=== PATIENT | female | born 1965 | race Caucasian/White ===

== ENCOUNTER 2018-04-08 14:51 | Emergency (ER) | payer MEDICAID ==
[~2018-04-08] VITALS: Ht 167.6 cm; Wt 88.9 kg
[2018-04-08 15:01] VITALS: BP_SYST 142
[2018-04-08 16:22] LABS: BASOPHILS # (AUTO) 0.1 K/uL (0.0-0.2); BASOPHILS % (AUTO) 0.7 % (0.0-2.0); EOSINOPHILS # (AUTO) 0.2 K/uL (0.0-0.4); EOSINOPHILS % (AUTO) 2.6 % (0.0-4.0); HEMATOCRIT 34.1 % (36-48); HEMOGLOBIN 11.6 g/dL (12.0-16.0); LYMPHOCYTES # (AUTO) 2.9 K/uL (1.0-5.5); MEAN CORPUSCULAR HEMOGLOBIN 30 pg (27-31); MEAN CORPUSCULAR HGB CONC 34 % (32-36); MEAN CORPUSCULAR VOLUME 87 fL (79.0-98.0); MONOCYTES # (AUTO) 0.4 K/uL (0.0-1.0); NEUTROPHILS # (AUTO) 5.1 K/uL (1.8-7.7); NEUTROPHILS % (AUTO) 58.7 % (40.0-70.0); PLATELET COUNT (AUTO) 372 K/uL (130-430); RED BLOOD CELL COUNT(AUTO) 3.91 MIL/uL (4.2-6.2); WHITE BLOOD COUNT (AUTO) 8.8 K/uL (4.8-10.8)
[2018-04-08 16:33] LABS: CALCIUM 9.1 mg/dL (8.4-11.0); CREATININE 1.2 mg/dL (0.55-1.30); POTASSIUM 4.2 mmol/L (3.5-5.1)
[2018-04-08 16:48] LABS: ALBUMIN 3.2 g/dL (3.4-4.8); TOTAL BILIRUBIN 0.3 mg/dL (0.0-1.0)
[2018-04-08 17:03] LABS: BILIRUBIN,URINE NEGATIVE (NEGATIVE); BLOOD, URINE NEGATIVE (NEGATIVE); CLARITY/URINE CLEAR (CLEAR); COLOR,URINE YELLOW (YELLOW); GLUCOSE,URINE 3+ (NEGATIVE); KETONES,URINE NEGATIVE (NEGATIVE); LEUKOCYTE ESTERASE ,URINE NEGATIVE (NEGATIVE); NITRITE, URINE NEGATIVE (NEGATIVE); PROTEIN URINE NEGATIVE (NEGATIVE)
[2018-04-08] MEDS ORDERED: INSULIN REGULAR, HUMAN 10 UNITS/0.1 ML INJ IVP ONE (17:15)
[2018-04-08] MEDS ORDERED: NACL 0.9% 1,000 ML IV ONE (17:15)
[2018-04-08] MEDS ORDERED: ONDANSETRON HCL 4 MG/2 ML VIAL IVP ONE (18:30)
[2018-04-08 19:02] VITALS: BP_SYST 139
== END 2018-04-08 18:59 | disposition home or self-care (01) ==
LOC: SED 14:51
DX: E11.621 Type 2 diabetes mellitus with foot ulcer (principal); E11.65 Type 2 diabetes mellitus with hyperglycemia; I10 Essential (primary) hypertension; I48.91 Unspecified atrial fibrillation; Z88.8 Allergy status to other drugs, medicaments and biological substances
CPT/HCPCS: 36415; 73630; 80053; 81003; 81025; 83605; 85025; 87040; 96365; 96366; 96375; 99285; J1956; J2405; J7030; J1815

== ENCOUNTER 2019-11-06 10:23 | Inpatient (IN) | payer MEDICAID ==
[~2019-11-06] VITALS: Ht 167.6 cm; Wt 88.9 kg
[2019-11-06 10:32] VITALS: BP_SYST 161
[2019-11-06] MEDS ORDERED: PIPERACILLIN/TAZO 3.375 GM in NS 50 ML IV ONE (12:30)
[2019-11-06] MEDS ORDERED: PIPERACILLIN/TAZOBACTAM 3.375 GM/VIAL (ZOSYN) IV ONE ×2 (13:35→21:50)
[2019-11-06 13:41] LABS: BASOPHILS # (AUTO) 0.1 K/uL (0.0-0.2); BASOPHILS % (AUTO) 0.6 % (0.0-2.0); EOSINOPHILS # (AUTO) 0.3 K/uL (0.0-0.4); EOSINOPHILS % (AUTO) 3.2 % (0.0-4.0); LYMPHOCYTES # (AUTO) 2.6 K/uL (1.0-5.5); LYMPHOCYTES % (AUTO) 27.3 % (20.5-51.5); MEAN CORPUSCULAR HEMOGLOBIN 29 pg (27-31); MEAN CORPUSCULAR HGB CONC 33 % (32-36); MEAN CORPUSCULAR VOLUME 88 fL (79.0-98.0); MONOCYTES # (AUTO) 0.5 K/uL (0.0-1.0); MONOCYTES % (AUTO) 5.7 % (1.7-9.3); NEUTROPHILS % (AUTO) 63.2 % (40.0-70.0); PLATELET COUNT (AUTO) 508 K/uL (130-430); RED BLOOD CELL COUNT(AUTO) 3.41 MIL/uL (4.2-6.2); RED CELL DISTRIBUTION WIDTH 12.4 % (9.0-15.0); WHITE BLOOD COUNT (AUTO) 9.4 K/uL (4.8-10.8)
[2019-11-06 13:52] LABS: CALCIUM 9.3 mg/dL (8.4-11.0); CREATININE 0.74 mg/dL (0.55-1.30); POTASSIUM 4.1 mmol/L (3.5-5.1)
[2019-11-06 14:08] LABS: ALBUMIN 2.6 g/dL (3.4-4.8); TOTAL BILIRUBIN 0.5 mg/dL (0.0-1.0)
[2019-11-06] MEDS ORDERED: LIP40 PO (15:38)
[2019-11-06] MEDS ORDERED: ASPI-1457 PO (15:38)
[2019-11-06] MEDS ORDERED: LOSA25TA3 PO (15:38)
[2019-11-06] MEDS ORDERED: GLU500 PO (15:38)
[2019-11-06] MEDS ORDERED: PIPERACILLIN/TAZO 3.375/DEX-IS 50 ML IV ONE (18:45)
[2019-11-06] MEDS ORDERED: DEXTROSE 50% JECT 50 ML DISP.SYRIN IVP PRN (18:45)
[2019-11-06] MEDS: VANCOMYCIN HCL 1.25 GM/NS 250 ML IV SCH (20:00)
[2019-11-06 21:00] VITALS: BP_SYST 143
[2019-11-06] MEDS: INSULIN REGULAR, HUMAN 100 UNITS/ML, 10 ML VIAL (humuLIN R) SUBCUT PRN (22:42)
[2019-11-07] VITALS: BP_SYST 145
[2019-11-07] MEDS: PIPERACILLIN/TAZO 3.375/DEX-IS 50 ML IV SCH ×5 (00:38→23:49)
[2019-11-07 08:00] VITALS: BP_SYST 155
[2019-11-07] MEDS: VANCOMYCIN HCL 1.25 GM/NS 250 ML IV SCH ×2 (08:54→20:00)
[2019-11-07] MEDS: ASPIRIN 81 MG TABLET(ECOTRIN) PO SCH (08:55)
[2019-11-07] MEDS: ATORVASTATIN 20 MG TABLET PO SCH (08:55)
[2019-11-07] MEDS: metFORMIN HCL 500 MG TABLET PO SCH ×2 (08:55→17:33)
[2019-11-07] MEDS: LOSARTAN POTASSIUM 25 MG TABLET PO SCH (08:56)
[2019-11-07 12:00] VITALS: BP_SYST 148
[2019-11-07 16:00] VITALS: BP_SYST 145
[2019-11-07] MEDS: INSULIN REGULAR, HUMAN 100 UNITS/ML, 10 ML VIAL (humuLIN R) SUBCUT PRN ×2 (17:46→23:52)
[2019-11-07 19:30] VITALS: BP_SYST 150
[2019-11-08] VITALS: BP_SYST 135
[2019-11-08] MEDS: PIPERACILLIN/TAZO 3.375/DEX-IS 50 ML IV SCH ×3 (05:17→18:44)
[2019-11-08] MEDS: INSULIN REGULAR, HUMAN 100 UNITS/ML, 10 ML VIAL (humuLIN R) SUBCUT PRN ×2 (05:24→12:19)
[2019-11-08 08:00] VITALS: BP_SYST 158
[2019-11-08] MEDS: ATORVASTATIN 20 MG TABLET PO SCH (08:43)
[2019-11-08] MEDS: LOSARTAN POTASSIUM 25 MG TABLET PO SCH (08:44)
[2019-11-08] MEDS: ASPIRIN 81 MG TABLET(ECOTRIN) PO SCH (08:44)
[2019-11-08] MEDS: metFORMIN HCL 500 MG TABLET PO SCH ×2 (08:45→18:44)
[2019-11-08] MEDS: VANCOMYCIN HCL 1.25 GM/NS 250 ML IV SCH ×2 (08:45→20:00)
[2019-11-08 12:00] VITALS: BP_SYST 147
[2019-11-08 17:00] VITALS: BP_SYST 163
[2019-11-08] MEDS: BALSAM PERU/CASTOR OIL 60 GM OINT...G. TP SCH (18:44)
[2019-11-08 19:30] VITALS: BP_SYST 144
[2019-11-08 23:52] VITALS: BP_SYST 136
[2019-11-09] MEDS: PIPERACILLIN/TAZO 3.375/DEX-IS 50 ML IV SCH ×5 (01:04→21:31)
[2019-11-09] MEDS ORDERED: KETOROLAC TROMETHAMINE 15 MG VIAL IM ONE (01:45)
[2019-11-09] MEDS ORDERED: KETOROLAC TROMETHAMINE 15 MG VIAL IVP ONE (02:00)
[2019-11-09] MEDS ORDERED: IBUPROFEN 600 MG TABLET PO ONE (06:00)
[2019-11-09 06:36] LABS: ALBUMIN 2.4 g/dL (3.4-4.8); CALCIUM 8.8 mg/dL (8.4-11.0); CREATININE 0.96 mg/dL (0.55-1.30); POTASSIUM 4.3 mmol/L (3.5-5.1); TOTAL BILIRUBIN 0.3 mg/dL (0.0-1.0)
[2019-11-09 08:00] VITALS: BP_SYST 160
[2019-11-09] MEDS: ASPIRIN 81 MG TABLET(ECOTRIN) PO SCH (08:11)
[2019-11-09] MEDS: VANCOMYCIN HCL 1.25 GM/NS 250 ML IV SCH ×2 (08:11→21:31)
[2019-11-09] MEDS: BALSAM PERU/CASTOR OIL 60 GM OINT...G. TP SCH (08:11)
[2019-11-09] MEDS: metFORMIN HCL 500 MG TABLET PO SCH ×2 (08:11→17:12)
[2019-11-09] MEDS: ATORVASTATIN 20 MG TABLET PO SCH (08:12)
[2019-11-09] MEDS: LOSARTAN POTASSIUM 25 MG TABLET PO SCH (08:12)
[2019-11-09 12:22] VITALS: BP_SYST 129
[2019-11-09] MEDS: INSULIN REGULAR, HUMAN 100 UNITS/ML, 10 ML VIAL (humuLIN R) SUBCUT PRN (12:45)
[2019-11-09 13:36] LABS: CHOLESTEROL 113 mg/dL (<200); HDL CHOLESTEROL 28 mg/dL (>55); LDL CHOLESTEROL 65 mg/dL (<100); TRIGLYCERIDES 89 mg/dL (30-150)
[2019-11-09 13:47] LABS: BASOPHILS # (AUTO) 0.1 K/uL (0.0-0.2); EOSINOPHILS # (AUTO) 0.3 K/uL (0.0-0.4); EOSINOPHILS % (AUTO) 3.2 % (0.0-4.0); HEMATOCRIT 29.5 % (36-48); HEMOGLOBIN 9.8 g/dL (12.0-16.0); LYMPHOCYTES # (AUTO) 2.8 K/uL (1.0-5.5); LYMPHOCYTES % (AUTO) 32.2 % (20.5-51.5); MEAN CORPUSCULAR HEMOGLOBIN 29 pg (27-31); MEAN CORPUSCULAR HGB CONC 33 % (32-36); MEAN CORPUSCULAR VOLUME 88 fL (79.0-98.0); MONOCYTES # (AUTO) 0.5 K/uL (0.0-1.0); MONOCYTES % (AUTO) 5.5 % (1.7-9.3); NEUTROPHILS % (AUTO) 58.1 % (40.0-70.0); PLATELET COUNT (AUTO) 510 K/uL (130-430); RED BLOOD CELL COUNT(AUTO) 3.34 MIL/uL (4.2-6.2); RED CELL DISTRIBUTION WIDTH 12.6 % (9.0-15.0); WHITE BLOOD COUNT (AUTO) 8.6 K/uL (4.8-10.8)
[2019-11-09 20:00] VITALS: BP_SYST 156
[2019-11-10] MEDS: PIPERACILLIN/TAZO 3.375/DEX-IS 50 ML IV SCH ×3 (06:11→18:16)
[2019-11-10] MEDS: INSULIN REGULAR, HUMAN 100 UNITS/ML, 10 ML VIAL (humuLIN R) SUBCUT PRN ×3 (06:14→18:21)
[2019-11-10] MEDS: metFORMIN HCL 500 MG TABLET PO SCH ×2 (09:49→18:15)
[2019-11-10] MEDS: LOSARTAN POTASSIUM 25 MG TABLET PO SCH (09:50)
[2019-11-10] MEDS: ATORVASTATIN 20 MG TABLET PO SCH (09:50)
[2019-11-10] MEDS: ASPIRIN 81 MG TABLET(ECOTRIN) PO SCH (09:50)
[2019-11-10] MEDS: VANCOMYCIN HCL 1 GM/NS PREMIX 250 ML IV SCH ×2 (11:50→22:52)
[2019-11-10 12:50] VITALS: BP_SYST 168
[2019-11-10 16:00] VITALS: BP_SYST 157
[2019-11-10] MEDS: BALSAM PERU/CASTOR OIL 60 GM OINT...G. TP SCH (17:04)
[2019-11-11] MEDS: INSULIN REGULAR, HUMAN 100 UNITS/ML, 10 ML VIAL (humuLIN R) SUBCUT PRN ×3 (00:08→19:13)
[2019-11-11] MEDS: PIPERACILLIN/TAZO 3.375/DEX-IS 50 ML IV SCH ×5 (00:09→23:45)
[2019-11-11 06:38] LABS: CALCIUM 8.7 mg/dL (8.4-11.0); CREATININE 0.81 mg/dL (0.55-1.30); POTASSIUM 3.6 mmol/L (3.5-5.1)
[2019-11-11] MEDS ORDERED: amLODIPine BESYLATE 5 MG TABLET PO ONE (07:15)
[2019-11-11] MEDS: VANCOMYCIN HCL 1 GM/NS PREMIX 250 ML IV SCH ×2 (11:40→22:10)
[2019-11-11] MEDS: metFORMIN HCL 500 MG TABLET PO SCH ×2 (11:45→18:58)
[2019-11-11] MEDS: LOSARTAN POTASSIUM 25 MG TABLET PO SCH (11:46)
[2019-11-11] MEDS: ASPIRIN 81 MG TABLET(ECOTRIN) PO SCH (11:47)
[2019-11-11] MEDS: BALSAM PERU/CASTOR OIL 60 GM OINT...G. TP SCH (11:48)
[2019-11-11] MEDS: ATORVASTATIN 20 MG TABLET PO SCH (11:48)
[2019-11-11 12:00] VITALS: BP_SYST 152
[2019-11-11 16:47] VITALS: BP_SYST 140
[2019-11-11 19:30] VITALS: BP_SYST 124
[2019-11-11] MEDS: INSULIN GLARGINE 100 UNITS/ML 10 ML VIAL SUBCUT SCH (20:25)
[2019-11-12] VITALS: BP_SYST 131
[2019-11-12] MEDS: PIPERACILLIN/TAZO 3.375/DEX-IS 50 ML IV SCH ×4 (05:23→23:16)
[2019-11-12] MEDS: LOSARTAN POTASSIUM 25 MG TABLET PO SCH (10:28)
[2019-11-12] MEDS: metFORMIN HCL 500 MG TABLET PO SCH ×2 (10:29→17:10)
[2019-11-12] MEDS: ASPIRIN 81 MG TABLET(ECOTRIN) PO SCH (10:29)
[2019-11-12] MEDS: ATORVASTATIN 20 MG TABLET PO SCH (10:29)
[2019-11-12] MEDS: amLODIPine BESYLATE 5 MG TABLET PO SCH (10:30)
[2019-11-12] MEDS: BALSAM PERU/CASTOR OIL 60 GM OINT...G. TP SCH (10:31)
[2019-11-12] MEDS: VANCOMYCIN HCL 1 GM/NS PREMIX 250 ML IV SCH ×2 (11:48→23:16)
[2019-11-12] MEDS: INSULIN REGULAR, HUMAN 100 UNITS/ML, 10 ML VIAL (humuLIN R) SUBCUT PRN ×3 (11:55→23:22)
[2019-11-12 12:35] VITALS: BP_SYST 157
[2019-11-12 16:04] VITALS: BP_SYST 160
[2019-11-12 20:00] VITALS: BP_SYST 153
[2019-11-12] MEDS: INSULIN GLARGINE 100 UNITS/ML 10 ML VIAL SUBCUT SCH (21:00)
[2019-11-13] VITALS: BP_SYST 155
[2019-11-13] MEDS: PIPERACILLIN/TAZO 3.375/DEX-IS 50 ML IV SCH (05:17)
[2019-11-13] MEDS: INSULIN REGULAR, HUMAN 100 UNITS/ML, 10 ML VIAL (humuLIN R) SUBCUT PRN (05:22)
[2019-11-13 06:12] LABS: BASOPHILS # (AUTO) 0.1 K/uL (0.0-0.2); BASOPHILS % (AUTO) 0.9 % (0.0-2.0); EOSINOPHILS # (AUTO) 0.4 K/uL (0.0-0.4); EOSINOPHILS % (AUTO) 3.8 % (0.0-4.0); HEMATOCRIT 27.1 % (36-48); HEMOGLOBIN 8.9 g/dL (12.0-16.0); LYMPHOCYTES # (AUTO) 3.3 K/uL (1.0-5.5); LYMPHOCYTES % (AUTO) 29.1 % (20.5-51.5); MEAN CORPUSCULAR HEMOGLOBIN 29 pg (27-31); MEAN CORPUSCULAR HGB CONC 33 % (32-36); MEAN CORPUSCULAR VOLUME 88 fL (79.0-98.0); MONOCYTES # (AUTO) 0.8 K/uL (0.0-1.0); MONOCYTES % (AUTO) 6.8 % (1.7-9.3); NEUTROPHILS # (AUTO) 6.7 K/uL (1.8-7.7); NEUTROPHILS % (AUTO) 59.4 % (40.0-70.0); PLATELET COUNT (AUTO) 433 K/uL (130-430); RED BLOOD CELL COUNT(AUTO) 3.09 MIL/uL (4.2-6.2); RED CELL DISTRIBUTION WIDTH 12.8 % (9.0-15.0); WHITE BLOOD COUNT (AUTO) 11.2 K/uL (4.8-10.8)
[2019-11-13 06:15] LABS: CALCIUM 8.4 mg/dL (8.4-11.0); CHLORIDE 103 mmol/L (98-107); CREATININE 0.96 mg/dL (0.55-1.30); GLUCOSE 143 mg/dL (70-99); POTASSIUM 3.5 mmol/L (3.5-5.1); SODIUM SERUM 132 mmol/L (136-145); UREA NITROGEN, BLOOD 18 mg/dL (8-21)
[2019-11-13 06:29] LABS: ANION GAP < 3 (5-15); GFR AFRICAN AMERICAN 78 mL/min (>90)
[2019-11-13 08:09] VITALS: BP_SYST 156
[2019-11-13] MEDS: metFORMIN HCL 500 MG TABLET PO SCH ×2 (08:19→17:59)
[2019-11-13] MEDS: LOSARTAN POTASSIUM 25 MG TABLET PO SCH (08:20)
[2019-11-13] MEDS: ATORVASTATIN 20 MG TABLET PO SCH (08:21)
[2019-11-13] MEDS: ASPIRIN 81 MG TABLET(ECOTRIN) PO SCH (08:21)
[2019-11-13] MEDS: amLODIPine BESYLATE 5 MG TABLET PO SCH (08:21)
[2019-11-13] MEDS: BALSAM PERU/CASTOR OIL 60 GM OINT...G. TP SCH (10:37)
[2019-11-13] MEDS: VANCOMYCIN HCL 1 GM/NS PREMIX 250 ML IV SCH ×2 (11:49→23:29)
[2019-11-13 12:00] VITALS: BP_SYST 142
[2019-11-13] MEDS ORDERED: DEXTROSE 50% JECT 50 ML DISP.SYRIN IVP PRN (14:30)
[2019-11-13] MEDS ORDERED: INSULIN GLARGINE 100 UNITS/ML 10 ML VIAL SUBCUT ONE (14:30)
[2019-11-13] MEDS ORDERED: INSULIN LISPRO SLIDING SCALE 100 UNITS/ML VIAL (humaLOG) SUBCUT PRN (14:30)
[2019-11-13 16:00] VITALS: BP_SYST 158
[2019-11-13 20:00] VITALS: BP_SYST 158
[2019-11-13 22:56] VITALS: BP_SYST 159
[2019-11-14] MEDS ORDERED: INSULIN GLARGINE 100 UNITS/ML 10 ML VIAL SUBCUT SCH (07:00)
[2019-11-14 08:12] VITALS: BP_SYST 163
[2019-11-14] MEDS: amLODIPine BESYLATE 5 MG TABLET PO SCH (08:15)
[2019-11-14] MEDS: LOSARTAN POTASSIUM 25 MG TABLET PO SCH (08:15)
[2019-11-14] MEDS: metFORMIN HCL 500 MG TABLET PO SCH ×2 (08:16→17:02)
[2019-11-14] MEDS: ATORVASTATIN 20 MG TABLET PO SCH (08:16)
[2019-11-14] MEDS: ASPIRIN 81 MG TABLET(ECOTRIN) PO SCH (08:16)
[2019-11-14] MEDS: BALSAM PERU/CASTOR OIL 60 GM OINT...G. TP SCH (10:49)
[2019-11-14] MEDS: VANCOMYCIN HCL 1 GM/NS PREMIX 250 ML IV SCH (11:04)
[2019-11-14 13:08] VITALS: BP_SYST 132
[2019-11-14 17:20] VITALS: BP_SYST 138
[2019-11-14 17:21] VITALS: BP_SYST 138
[2019-11-14] MEDS ORDERED: CLIN300C11 PO (18:37)
[2019-11-14] MEDS ORDERED: DOXY100T2 PO (18:37)
[2019-11-14] MEDS ORDERED: INSU100V9 SUBCUT (18:38)
== END 2019-11-14 19:00 | disposition home or self-care (01) | DRG 344 ==
LOC: SED 10:23 → SMU 15:24
PROVIDERS: ADMIT Internal Medicine Hospice and Palliative Medicine; ATTEND Internal Medicine Hospice and Palliative Medicine
DX: M86.8X7 Other osteomyelitis, ankle and foot (principal); E43 Unspecified severe protein-calorie malnutrition; E11.42 Type 2 diabetes mellitus with diabetic polyneuropathy; I48.91 Unspecified atrial fibrillation; L03.115 Cellulitis of right lower limb; E11.628 Type 2 diabetes mellitus with other skin complications; E11.65 Type 2 diabetes mellitus with hyperglycemia; E11.610 Type 2 diabetes mellitus with diabetic neuropathic arthropathy; E11.69 Type 2 diabetes mellitus with other specified complication; E78.00 Pure hypercholesterolemia, unspecified; E78.5 Hyperlipidemia, unspecified; I10 Essential (primary) hypertension; E66.9 Obesity, unspecified; Z88.5 Allergy status to narcotic agent; Z88.8 Allergy status to other drugs, medicaments and biological substances; Z79.899 Other long term (current) drug therapy; Z68.31 Body mass index [BMI] 31.0-31.9, adult
CPT/HCPCS: 36415; 71045; 73720; 80048; 80053; 80061; 80202-TC; 82962; 83036; 83605; 84484; 85025; 87040-TC; 93005; 96365; 99285; J1815; J1885; J2543; J3370; J7050